=== PATIENT | female | born 1975 | race Caucasian/White ===

== ENCOUNTER 2017-07-14 14:58 | Outpatient (CLI) | payer BC ==
--- NOTE | 2017-07-14 16:11 | MMO ---
BILATERAL SCREENING MAMMOGRAM: DATE: 07/14/17 HISTORY: 42-year-old female for screening mammography. FINDINGS: Bilateral MLO and CC views of the breasts show extremely dense breast parenchyma, which may obscure lesions on mammography. There is no evidence of suspicious mass, suspicious cluster of microcalcific ations, or area of architectural distortion. Interpretation of this mammogram was performed with the assistance of computer-aided detection. IMPRESSION: BIRADS 1: Negative Annual screening mammography is recommended. POS: BRIANA
== END 2017-07-14 14:59 | disposition home or self-care (01) ==
LOC: SCSMAMMO 14:58
PROVIDERS: ATTEND Family Medicine
DX: Z12.31 Encounter for screening mammogram for malignant neoplasm of breast (principal)
CPT/HCPCS: 77067; G0202

== ENCOUNTER 2018-04-24 14:36 | Outpatient (CLI) | payer BC ==
[2018-04-24 15:35] LABS: Hemoglobin 12.8 g/dL (12.0-16.0); Mean Corpuscular HGB CONC 34.3 g/dL (32.0-36.0); Mean Corpuscular Hemoglobin 31.2 pg (27.0-31.0); Mean Platelet Volume 8.6 fL (7.4-10.4); Platelet Count 249 thou/uL (130-400); Red Blood Cell (RBC) Count 4.09 mill/uL (4.20-5.40); White Blood Cell (WBC) Count 8.7 thou/uL (4.8-10.8)
[2018-04-24 15:42] LABS: BHCG - Serum Negative (NEGATIVE); Pregs Control Background? CLEAR/WHITE (CLR/WHITE); Pregs Control Bar Appear? YES (CONTROL BAR)
== END 2018-04-24 14:37 | disposition home or self-care (01) ==
LOC: LABBT 14:36
PROVIDERS: ATTEND Obstetrics & Gynecology
DX: Z01.812 Encounter for preprocedural laboratory examination (principal); N92.1 Excessive and frequent menstruation with irregular cycle
CPT/HCPCS: 84703; 85027

== ENCOUNTER 2018-04-25 08:50 | Day surgery (SDC) | payer BC ==
--- NOTE | 2018-04-24 08:01 | HP ---
HISTORY OF PRESENT ILLNESS: Ms. Galindo is a 42-year-old female who has been having heavy and frequent menstrual cycles. They can be 16-21 to 30 days apart and then bleed for 7-10 days . She describes the flow as heavy. She gives a history of a normal Pap smear 2 years prior. Due to this complaint, she was referred for evaluation and was seen in my office on 01/24/2018. She underwent a transvaginal ultrasound due to the irregular bleeding which showed a thickened endometria l lining with Doppler vascularity to the area consistent with an endometrial polyp. There were no ad nexal masses or uterine fibroids seen. She underwent an endometrial biopsy that day with pathology s howing an endometrial polyp with no other endometrial hyperplasia or malignancy reported. PAST MEDICAL HISTORY: Unremarkable. PAST SURGICAL HISTORY: None reported. ALLERGIES: She has no known drug allergies. SOCIAL HISTORY: Non-smoker, minimal alcohol use. 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 She is . FAMILY HISTORY: Hypertension in her father and hyperlipidemia in her parents and a sister. PHYSICAL EXAMINATION: VITAL SIGNS: Her blood pressure is 110/68, pulse 67 and regular, respirations 18, height 61 inches, weight 105 pounds with BMI of 19.8. HEENT: Within normal limits. CHEST: Clear to auscultation. HEART: Regular rate and rhythm. S1, S2 heart sounds, no murmurs, rubs or gallops. ABDOMEN: Soft, nontender, nondistended with no palpable masses. PELVIC: Vulva and vagina had no lesions. Cervix had no lesions. Uterus is not enlarged. Endometri al sound was 8.5 cm with tissue removed consistent with the previously mentioned EMB reports of a steffi yp. Adnexa showed no masses or adnexal tenderness. ASSESSMENT: A 42-year-old [place] female with abnormal uterine bleeding with transvagin al ultrasound confirmation of a polyp with endometrial biopsy confirming this. PLAN: Proceed with hysteroscopic resection of endometrial polyp with D&C in the operating room on . The risk and benefits of surgery discussed in detail. She is set for surgery.
[2018-04-24 15:08] VITALS: BMI 19.8
[2018-04-25] MEDS ORDERED: Midazolam HCl 2 mg/2 ml Vial ONE (10:25)
[2018-04-25] MEDS ORDERED: CEFAZOLIN/Water 2 GM/20 ML SYRINGE ONE (10:30)
[2018-04-25] MEDS ORDERED: Fentanyl 100 MCG/2 ML VIAL ONE (12:01)
[2018-04-25] MEDS ORDERED: Dexamethasone 20 MG/5 ML VIAL ONE (12:30)
[2018-04-25] MEDS ORDERED: Ketorolac Tromethamine 30 MG/ML VIAL ONE (12:30)
[2018-04-25] MEDS ORDERED: PROPOFOL 200 MG/20 ML VIAL ONE (12:30)
[2018-04-25] MEDS ORDERED: Ondansetron HCl/PF 4 MG/2 ML Vial ONE (12:30)
[2018-04-25] MEDS ORDERED: Lidocaine 1% PF 5 ML VIAL ONE ×2 (12:30)
--- NOTE | 2018-04-26 05:26 | OP ---
DATE OF OPERATION: 04/25/2018 PREOPERATIVE DIAGNOSES: 1. A 42-year-old female with abnormal uterine bleeding. 2. Ultrasound findings consistent with endometrial polyp with biopsy, endometrial biopsy confirmatio n. POSTOPERATIVE DIAGNOSES: 1. A 42-year-old female with abnormal uterine bleeding. 2. Ultrasound findings consistent with endometrial polyp with biopsy, endometrial biopsy confirmatio n. PROCEDURE PERFORMED: Diagnostic hysteroscopy with D&C and polypectomy. SURGEON: Diamond Diego M.D. ANESTHESIA: General endotracheal. ESTIMATED BLOOD LOSS: Less than 10 mL extension medial deficit 100 mL of saline. PATHOLOGY: Endometrial curettings with polypoid tissue. FINDINGS: The uterus was noted to have some polypoid like lesion up in the upper fundus anteriorly, status post removal. Otherwise, the cervical canal and bilateral cornua of the uterus without any ev idence of fibroids or other lesions. DISPOSITION: Recovery room with plan for discharge home with followup less than 3 weeks. DESCRIPTION OF OPERATIVE PROCEDURE: The patient previously received informed consent in regard [facility]. She was taken back to the operating room where she received a general endotracheal anesthetic agent without complications. She was placed in the dorsal lithotomy position with use of Aiden stir rups, prepped and draped in usual sterile fashion. A sidearm speculum was placed in the vagina. The cervix was grasped with single-tooth tenaculum. The uterus sounded 8 cm. A serial dilatation of th e cervical os was carried out with Yeung dilators with size 16 Yeung dilator. A 5 mm diagnostic Ed lear hysteroscopy device was then placed. Scope was placed through the cervical os into the uterine cavity and the uterus distended with saline distention in 80 mm pressure. The previously mentioned f indings were noted. A sharp curettage was then carried out of the endometrial cavity, removing tissu e. Circumferential direction and this was sent for final pathology. The hysteroscope was introduced through the cervical os and uterine cavity in resolution and removal of polypoid looking material wa s noted. The hysteroscope was then removed. Fluid deficit was 100 mL of normal saline. Tenaculum w as removed from the cervix. Pressure was placed at the tenaculum site with a sponge stick for hemost asis. The speculum was removed along with a sponge stick. The patient was awakened from anesthesia and transferred her in stable condition.
== END 2018-04-25 16:15 | disposition home or self-care (01) ==
LOC: SDC 08:50
PROVIDERS: ATTEND Obstetrics & Gynecology
PROC: 0UB98ZX Excision of Uterus, Via Natural or Artificial Opening Endoscopic, Diagnostic (ICD-10-PCS; principal; 2018-04-25)
PROC: 0UDB8ZX Extraction of Endometrium, Via Natural or Artificial Opening Endoscopic, Diagnostic (ICD-10-PCS; principal; 2018-04-25)
DX: N84.0 Polyp of corpus uteri (principal)
CPT/HCPCS: 88305; J1100; J1885; J2001; J2250; J2405; J2704; J3010

== ENCOUNTER 2019-02-12 08:00 | Outpatient (CLI) | payer BC ==
--- NOTE | 2019-02-12 08:23 | MMO ---
Bilateral MAMMO Bilat Screen [facility]. CLINICAL HISTORY: Patient is 43 years old and is seen for screening. The patient has no family history of breast cancer. The patient has no personal history of cancer. VIEWS: The views performed were: bilateral craniocaudal and bilateral mediolateral oblique. FILMS COMPARED: The present examination has been compared to a prior imaging study performed at [facility] on 07/14/2017. This study has been interpreted with the assistance of computer-aided detection. MAMMOGRAM FINDINGS: The breasts are extremely dense, which may lower the sensitivity of mammography. There are stable benign appearing calcifications seen in both breasts. There are no suspicious masses, suspicious calcifications, or new areas of architectural distortion. IMPRESSION: THERE IS NO MAMMOGRAPHIC EVIDENCE OF MALIGNANCY. A ROUTINE FOLLOW-UP MAMMOGRAM IN 1 YEAR IS RECOMMENDED. ACR BI-RADS Category 2 - Benign finding MAMMOGRAPHY NOTE: 1. A negative mammogram report should not delay a biopsy if a dominant of clinically suspicious mass is present. 2. Approximately 10% to 15% of breast cancers are not detected by mammography. 3. Adenosis and dense breasts may obscure an underlying neoplasm.
== END 2019-02-12 08:01 | disposition home or self-care (01) ==
LOC: SCSMAMMO 08:00
PROVIDERS: ATTEND Family Medicine
DX: Z12.31 Encounter for screening mammogram for malignant neoplasm of breast (principal)
CPT/HCPCS: 77067